=== PATIENT | male | born 1985 | race African-American/Black ===

== ENCOUNTER 2019-02-28 10:55 | Emergency (ER) | payer SELFPAY ==
[2019-02-28 11:02] VITALS: BP 139/91; PULSE 63; TEMP 98; BMI 29.2
--- NOTE | 2019-02-28 11:20 | PDOC ---
History of Present Illness - General Chief Complaint: Headache Stated Complaint: HEADACHE Time Seen by Provider: 02/28/19 11:19 History Source: Patient - History of Present Illness Initial Comments: 02/28/19 12:10 Chief complaint: Headache Patient is a healthy 33-year-old male who had flu symptoms 4-5 days ago with nasal congestion, sore throat and a little cough. Patient started developing a frontal, throbbing headache. Patient states other symptoms have resolved but last night headache was bad. It is somewhat better today but complaining of a throbbing frontal headache. Took Tylenol this morning which did not help. No fever. GENERAL/CONSTITUTIONAL: No fever, weakness. dizziness HEAD, EYES, EARS, NOSE AND THROAT: No change in vision. No ear pain or discharge. No sore throat. CARDIOVASCULAR: No chest pain RESPIRATORY: No shortness of breath or cough GASTROINTESTINAL: No pain, nausea, vomiting, diarrhea or constipation GENITOURINARY: No dysuria MUSCULOSKELETAL: No neck or back pain SKIN: No rash NEUROLOGIC: +headache, no:vertigo, loss of consciousness, or loss of sensation. GENERAL: The patient is awake, alert, and fully oriented, in no acute distress. HEAD: Normal with no signs of trauma. EYES: Pupils equal, round and reactive to light, sclera anicteric, conjunctiva clear. ENT: pharynx: no erythema, no exudate, uvula midline NECK: supple, no tenderness or meningeal signs CHEST: clear, nontender, rr ABD: soft, nontender BACK: no tenderness or signs of injury EXTREMITIES: Normal range of motion, no edema. NEUROLOGICAL: Normal speech, normal gait. Cranial nerves II through XII grossly intact, no gross focal abnormalities SKIN: Warm, Dry Past History - Past Medical History Allergies/Adverse Reactions: Allergies Allergy/AdvReac Type Severity Reaction Status Date / Time No Known Allergies Allergy Verified 02/28/19 10:59 COPD: No - Immunization History Immunization Up to Date: Yes - Suicide/Smoking/Psychosocial Hx Smoking History: Never smoked Hx Alcohol Use: Yes (socially) Drug/Substance Use Hx: No *Physical Exam - Vital Signs Last Vital Signs Temp Pulse Resp BP Pulse Ox 98.0 F 63 18 139/91 100 02/28/19 10:59 02/28/19 10:59 02/28/19 10:59 02/28/19 10:59 02/28/19 10:59 Medical Decision Making - Medical Decision Making 02/28/19 12:13 Healthy 33-year-old male with resolving URI symptoms with throbbing frontal headache not resolved by Tylenol. Discussed options with patient, will give Tylenol and Motrin and reassess Headache has improved from an 8 to a 5, will give patient 1 L of fluids, Reglan and Benadryl and reassess pt feeling better on discharge Discussed issues, findings, results, applicable medications and treatments and follow-up. All these were understood and all questions were answered 02/28/19 13:38 *DC/Admit/Observation/Transfer Diagnosis at time of Disposition: Frontal headache - Discharge Dispostion Disposition: HOME Condition at time of disposition: Stable Decision to Admit order: No - Referrals - Patient Instructions Printed Discharge Instructions: Sinus Headache Additional Instructions: Drink 2-3 L of water daily Take Tylenol 650 mg every 4 hours or Motrin 600 mg every 6 hours for fever and pain Return to the nearest ER if short of breath, unable to swallow or feeling sicker Followup with your doctor in one to 2 days - Post Discharge Activity Forms/Work/School Notes: Back to Work
[2019-02-28] MEDS ORDERED: IBUPROFEN 600 MG TABLET (FP) PO ONE ×2 (11:26→11:29)
[2019-02-28] MEDS ORDERED: ACETAMINOPHEN 325 MG TABLET (FP) PO ONE (11:26)
[2019-02-28] MEDS ORDERED: ACETAMINOPHEN 325 MG TABLET (FP) ONE (11:29)
[2019-02-28] MEDS ORDERED: METOCLOPRAMIDE HCL INJECTION 10 MG/2 ML VIAL IVPUSH ONE (12:05)
[2019-02-28] MEDS ORDERED: METOCLOPRAMIDE HCL INJECTION 10 MG/2 ML VIAL ONE (12:05)
[2019-02-28] MEDS ORDERED: SODIUM CHLORIDE 1,000 ML IV STA (12:07)
== END 2019-02-28 13:40 | disposition home or self-care (01) ==
LOC: JERFT 10:55
PROC: 3E033GC Introduction of Other Therapeutic Substance into Peripheral Vein, Percutaneous Approach (ICD-10-PCS; principal; 2019-02-28)
PROC: 3E0337Z Introduction of Electrolytic and Water Balance Substance into Peripheral Vein, Percutaneous Approach (ICD-10-PCS; 2019-02-28)
DX: R51 Headache (principal)
CPT/HCPCS: 99281-25; J7030